=== PATIENT | male | born 1935 | race Two or more races ===

== ENCOUNTER 2017-07-22 09:28 | Emergency (ER) | payer MEDICARE, OTHER ==
[~2017-07-22] VITALS: Ht 165.1 cm; Wt 63.5 kg
[2017-07-22] MEDS ORDERED: Neosporin Oint Ud Pkt TOP ONE (10:00)
[2017-07-22] MEDS ORDERED: Tetanus/Diptheria/Pertussis Vaccine 0.5ml Syr IM ONE (10:00)
[2017-07-22] MEDS ORDERED: Acetaminophen 500mg (ES) tab PO ONE (10:00)
--- NOTE | 2017-07-22 10:13 | Emergency Room Report ---
History of Present Illness General Chief Complaint: Upper Extremity Injury Source: Patient, Family Member Present Illness HPI Patient presents after a trip and fall last night. He hit his knee, forehead and right hand. He had severe pain in his hand last night but it's better today. Was wrapped but still is swollen. He denies any numbness. There are some cuts on his thumb and scrapes on his forehead and right knee. He denies loss of consciousness. He does take Plavix and aspirin at this time. He had a recent angioplasty. He denies any chest pain or palpitations. He was also given Keflex 250 mg after the angioplasty for unknown reason. Pain rated at 6/ 10, aching, improving but constant, worse when arm is dependent. The patient does not believe in vaccinations. No fevers, NVD, dizziness, headache, change vision, SOB, chest pain, palpitations, dysuria. Moving bowels without problems. R handed Allergies: Coded Allergies: No Known Allergies (Unverified , 07/22/17) Patient History Past Medical History: see triage record Past Surgical History: PTCA Social History Narrative with family Reviewed Nursing Documentation: PMH: Agreed, PSxH: Agreed Nursing Documentation-PMH Hx Hypertension: Yes Review of Systems All Other Systems: negative except mentioned in HPI Physical Exam Vital Signs Date Time Temp Pulse Resp B/P (MAP) Pulse Ox O2 Delivery O2 Flow Rate FiO2 07/22/17 09:37 97.6 80 16 160/80 98 Room Air 97.5 Sp02 EP Interpretation: reviewed, normal General Appearance: well appearing, no apparent distress, GCS 15 Head: normocephalic, other - hematoma R forehead Eyes: bilateral eye normal inspection, bilateral eye PERRL, bilateral eye EOMI ENT: hearing grossly normal, normal voice Neck: full range of motion, supple, no bony tend Respiratory: chest non-tender, lungs clear, no respiratory distress, speaking full sentences Cardiovascular #1: regular rate, rhythm Cardiovascular #2: 2+ radial (R) - good cap fill, 2+ radial (L) Gastrointestinal: normal inspection, normal bowel sounds Musculoskeletal: back normal, gait/station normal, normal range of motion - except for wrist with decreased flexion and extension due to pain. Unable to make fist, no calf tenderness, pelvis stable, swelling - R wirst, snuff box is non-tender, other - knee ligaments stable Neurologic: alert, cold header III-XII nml as tested, motor strength/tone normal, DTRs symmetric, sensory intact, cerebellar normal, normal gait, speech normal Psychiatric: mood/affect normal Skin: other - superficial flap lac R thumb, abrasions, hematoma - R wrist, R knee, L forehead Medical Decision Making Diagnostic Impression: Primary Impression: Wrist fracture Qualified Codes: S62.101A - Fracture of unspecified carpal bone, right wrist, initial encounter for closed fracture Additional Impressions: Head contusion Qualified Codes: S00.12XA - Contusion of left eyelid and periocular area, initial encounter Abrasion Contusion of right knee Qualified Codes: S80.01XA - Contusion of right knee, initial encounter ER Course The patient presents with trauma after fall. His main complaint is right wrist pain. Differential includes fracture, contusion and hematoma. Eyes exam my suspicion for fracture site. Nutrition he has contusions to his left forehead and right knee. The knee is stable and does not require x-rays. The patient is on Plavix and has a nonfocal neurologic exam at this time. We need to be concerned about the fact he is on Plavix however neurologic observation by family will be indicated. The patient needs tetanus. Xray with radius fracture, minimal angulation, somewhat impacted. Splint applied by tech. Position excellent, with neurovasc checked by me and normal. Sling also applied. With splint, patient states pain is gone. Patient stable for outpatient observation and treatment. Other X-Ray Diagnostic Results Other X-Ray Diagnostic Results : # of Views/Limited Vs Complete: 3 View Indication: Other EP Interpretation: Yes Interpretation: other - fracture of distal radius, angulation, impaction, STS Impression: Other Electronically Signed by: Dakota Yates MD Last Vital Signs Date Time Temp Pulse Resp B/P (MAP) Pulse Ox O2 Delivery O2 Flow Rate FiO2 07/22/17 11:17 97.9 88 16 143/87 96 Room Air 97.6 Status: improved Disposition: HOME, SELF-CARE Condition: Improved Scripts Bacitracin (Bacitracin) 28.4 Gm Oint...g. 1 APPLIC TOPIC BID, #14 GM Prov: Dakota Yates M.D. 07/22/17 Tramadol Hcl* (ULTRAM*) 50 Mg Tablet 50 MG ORAL Q6H Y for For Pain, #10 TAB 0 Refills Prov: Dakota Yates M.D. 07/22/17 Referrals: NON PHYSICIAN (PCP) Dakota Yates M.D. Jul 22, 2017 10:13
[2017-07-22] MEDS ORDERED: TRAMADOL HCL50 MG ORAL (10:50)
[2017-07-22] MEDS ORDERED: BACITRACIN15 GM TOPIC (11:14)
[2017-07-22 11:17] VITALS: BP 143/87
--- NOTE | 2017-07-22 13:51 | Diagnostic Imaging Report ---
Clinical Indication:Trauma, fall Technique: 3 views of the right wrist Comparison: None Findings: There is an impacted slightly posteriorly angulated fracture of the distal radius. Uncertain as to whether this involves the articular surface although suspect that it does. No carpal fracture demonstrated. No associated ulnar fracture. The joint spaces are preserved. The bones are osteoporotic Impression: Positive for distal radial fracture. Findings discussed by phone with Dr. Yates in the emergency room at the time of interpretation
== END 2017-07-22 11:17 | disposition home or self-care (01) ==
LOC: EMR 10:08
DX: S52.501A Unspecified fracture of the lower end of right radius, initial encounter for closed fracture (principal); S00.83XA Contusion of other part of head, initial encounter; S80.01XA Contusion of right knee, initial encounter; S60.311A Abrasion of right thumb, initial encounter; W01.0XXA Fall on same level from slipping, tripping and stumbling without subsequent striking against object, initial encounter; Y92.9 Unspecified place or not applicable; Z23 Encounter for immunization; I10 Essential (primary) hypertension; Z79.02 Long term (current) use of antithrombotics/antiplatelets
CPT/HCPCS: 90471; 90715; 99284